=== PATIENT | female | born 1985 | race Caucasian/White ===

== ENCOUNTER 2022-04-21 17:55 | Emergency (ER) | payer BC, SELFPAY ==
[2022-04-21 17:57] VITALS: BP 152/123; PULSE 132; RESP 12; TEMP 37.2; O2SAT 98; BMI 25.0
--- NOTE | 2022-04-21 18:18 | CT_ITS ---
STUDY: CT ABDOMEN AND PELVIS WITH CONTRAST REASON FOR EXAM: Female, 37 years old. Abdominal pain RADIATION DOSAGE (If Supplied By Facility): CTDIvol = ( 7.47 ) mGy, DLP = ( 393.28 ) mGycm TECHNIQUE: Transaxial images were obtained from the dome of the diaphragm to the symphysis pubis with oral contrast. 100mL Isovue-300 was administered. Sagittal and coronal images were reconstructed. Individualized dose optimization techniques were used for this CT. COMPARISON: None. FINDINGS: There is right lower lung bronchiectasis and interstitial infiltrate. The visualized portions of the heart are within normal limits. There is hepatomegaly with diffuse hepatic enlargement. Normal gallbladder and extrahepatic biliary system. Normal spleen. Normal pancreas. Normal bilateral adrenal glands. Normal right kidney. Normal left kidney. Normal visualized stomach. Normal small intestine. Normal colon. The appendix is visualized and appears normal. Normal abdominal aorta. Normal inferior vena cava. Normal retroperitoneum. Normal urinary bladder. There is IUD in the uterus. There is 3.8 cm lobular right ovarian cyst. There is mild free fluid in the pelvis. Normal abdominal wall. Normal osseous structures. CT/Abdomen/Pelvis WITH Contrast IMPRESSION: Right ovarian cyst. Mild free fluid. Hepatomegaly. Right lower lung interstitial infiltrate and bronchiectasis. Electronically Signed: Mason Ramirez MD at 21:39 EDT Reading Location ID and State: [facility] / [place] , Service support ,
--- NOTE | 2022-04-21 18:20 | ED.VIS.GI ---
HPI HPI - GI History of Present Illness Chief Complaint: Abd Pain Detail of Chief Complaint: Abdominal pain Informant: patient Abdominal Pain/Flank Pain Current Severity: 02/22 Narrative Narrative: Patient presents to the emergency department complaint of abdominal pain that started initially 3 days ago. Patient states she ate some peanut butter that she thought maybe was bad as Jiff recalled some other product for Salmonella. Patient states that soon after she started having nausea and dry heaves and diarrhea. Now complaining of pain in the right side of the abdomen that is worse with moving her right leg and cough. Patient has history of primary ciliary dyskinesia and asthma as well as hypoagammaglobulinemia. Patient had a low-grade fever today up to 100.1. She denies cough or sore throat. She denies body aches. She said decreased appetite. Prior similar symptoms: No PFSH PFSH Medical History (Updated 04/21/22 @ 22:[address] Makenzie Sin, DO) Asthma GERD (gastroesophageal reflux disease) Primary ciliary dyskinesia Home Medications Levocetirizine Dihydrochloride 5 mg PO DAILY 08/10/14 [History Last Taken Unknown] acetaminophen [Tylenol] 650 mg PO Q4H PRN 08/10/14 [History Last Taken Unknown] albuterol sulfate 2.5 mg INHALATION Q6HWA.RT 08/10/14 [History Last Taken Unknown] esomeprazole magnesium [Nexium] 40 mg PO BID 08/10/14 [History Last Taken Unknown] guaifenesin [Mucinex] 600 mg PO BID 08/10/14 [History Last Taken Unknown] levothyroxine 25 mcg PO DAILY 08/10/14 [History Last Taken Unknown] ondansetron 4 mg PO Q8H PRN PRN 08/10/14 [History Last Taken Unknown] azithromycin 500 mg PO DAILY 04/21/22 [History Last Taken Unknown] budesonide 0.25 mg INHALATION BID 04/21/22 [History Last Taken Unknown] dornase hay [Pulmozyme] 2.5 mg INHALATION BID 04/21/22 [History Last Taken Unknown] immune globulin (human) (IgG) g IV 04/21/22 [History Last Taken Unknown] linaclotide [Linzess] 145 mcg PO DAILY 04/21/22 [History Last Taken Unknown] Allergy/AdvReac Type Severity Reaction Status Date / Time 0.225 % sodium chloride Allergy Other Verified 04/21/22 17:57 [From Samir] aztreonam lysine Allergy Other Verified 04/21/22 17:57 [From [place]] ciprofloxacin [From Cipro] Allergy Hives Verified 04/21/22 17:57 ciprofloxacin HCl Allergy Hives Verified 04/21/22 17:57 [From Cipro] levofloxacin [From Levaquin] Allergy Hives Verified 04/21/22 17:57 tobramycin [From Samir] Allergy Other Verified 04/21/22 17:57 Surgical History (Updated 04/21/22 @ 18:09 by Jill Pedro) S/P lobectomy of lung Social History Smoking Status: Never smoker ROS ROS ED Constitutional Constitutional ED: Reports systems reviewed and no addt'l complaints, except as documented; Denies body ache(s), change in weight or chills Eyes Eyes: Denies acute decrease in peripheral vision, change in vision, double vision or loss of vision ENT ENT ED: Reports none; Denies ear pain, lip swelling, loss taste/smell, neck pain, otalgia or sore throat Cardiovascular Cardiovascular: Reports none; Denies abdominal pain, chest pain with activity, leg edema, lightheadedness, palpitations, rapid heart rate or syncope Respiratory/Chest Respiratory/Chest: Reports none; Denies change in mental status, dry cough, dyspnea, hemoptysis, shortness of breath at rest or shortness of breath with exertion Gastrointestinal Gastrointestinal: Reports none, abdominal pain, diarrhea, nausea and vomiting; Denies change in stool character, hematemesis, hematochezia, melena or rectal bleeding Genitourinary Genitourinary ED: Reports none; Denies abdominal discomfort, anuria, dysuria, genital pain or polyuria Musculoskeletal Musculoskeletal: Reports none; Denies arthralgias, back pain, difficulty walking, extremity pain, muscle weakness or myalgias Integumentary Reports none; Denies abscess or rash Neurologic Neurologic: Reports none; Denies abnormal gait, confusion, focal weakness, frequent falls, headache(s), loss of vision, numbness, paresthesias, radicular pain, vertigo or weakness Psychiatric Psychiatric: Reports systems reviewed and no addt'l complaints, except as documented and none; Denies behavioral changes, confusion, difficulty concentrating, hallucinations, suicidal ideation, tactile hallucinations or visual hallucinations Endocrine Endocrinology: Denies none, cold intolerance, excessive sweating, fatigue or heat intolerance Hematologic/Lymphatic Hematologic/Lymphatic: Reports none; Denies anemia, easy bleeding or easy bruising Allergic/Immunologic Allergic/Immunologic ED: Denies as per HPI, none, lip swelling, mouth swelling, throat swelling, tongue swelling or hives EXAM Physical Exam Const Vital Signs: 04/21/22 17:57 04/21/22 20:00 04/21/22 20:05 Temperature 98.9 F 100.5 F H Temperature Source Temporal Oral Pulse Rate 132 H 108 H 111 H Respiratory Rate 12 24 H 18 Respiratory Effort Normal Short of Breath Respiratory Depth Shallow Respiratory Pattern Tachypnea Blood Pressure 152/123 H 134/74 H Blood Pressure Mean 132 94 Pulse Ox 98 100 98 Oxygen Delivery Method Room Air Room Air Room Air 04/21/22 21:24 Temperature Temperature Source Pulse Rate 115 H Respiratory Rate 18 Respiratory Effort Respiratory Depth Respiratory Pattern Blood Pressure 127/72 H Blood Pressure Mean 90 Pulse Ox 97 Oxygen Delivery Method Room Air Positive well nourished and well developed General Appearance ED: well developed and NAD HEENT Reports TM's clear and moist mucous membranes normocephalic and atraumatic; Negative for trauma or tenderness Tympanic Membrane ED: Yes TM's clear Eyes PERRL and EOMs intact bilaterally General Eye ED: Negative for pale conjunctiva or scleral icterus Neck no lymphadenopathy, supple and no JVD General: Negative for tenderness Chest Wall inspection of chest normal and palpation of chest normal Chest: Negative for tenderness Resp normal respiratory effort and clear to auscultation bilaterally Effort and Inspection: Negative for respiratory distress or pain with movement Auscultation: Negative for rhonchi, wheezes or diminished lung sounds Cardio regular rate, regular rhythm, S1 normal heart sound, S2 normal heart sound and no murmurs Peripheral Pulses: pulses 2+ throughout GI normal to inspection, nondistended, normoactive bowel sounds, soft to palpation, non-distended and no masses GI Narrative: Tenderness to the right lower quadrant with guarding. Patient also some mild tenderness of the right upper quadrant. There is no rebound, rigidity, or peritoneal signs. She has a positive heel strike. Palpation: soft and tender Back/Spine no CVA tenderness and no thoracic nor lumbar tenderness Extremity normal to inspection General Extremety ED: Negative for edema General Extremity: Negative for edema Neuro oriented x3, CN's II-XII intact bilaterally, no sensory deficits noted and gait normal Sensorium / Orientation: awake, alert, oriented to person, oriented to place and oriented to time Motor Exam: strength 5/5 throughout and strength abnormal Psych mental status grossly normal Skin no rashes or lesions noted and no wounds MDM MDM MDM Narrative Medical decision making narrative: IV line established on arrival. Patient was given Zofran for nausea. Lab work-up showed a normal WBC count and chemistries. Urinalysis was unremarkable. CT scan of the abdomen pelvis showed a normal appendix but did show a 3.5 cm right ovarian cyst. Patient also was noted to have a right lower lobe interstitial infiltrate on CT of the lung bases. Patient tells me that she has been coughing more than usual and is chronically colonized with Pseudomonas. 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 I ordered a sputum culture and blood cultures as well. I feel patient can be safely discharged to home. Patient will continue with ibuprofen and Tylenol for discomfort of her abdominal pain and will follow-up with PROFESSOR OF ART regarding her ovarian cyst as she has had frequent ovarian cyst in the past. I also suspect patient may have had a viral gastroenteritis. Patient was unable to give a stool sample here to send for enteric pathogens. Lab Data Attestation: I reviewed the patient's lab results. Labs: Laboratory Results - last 24 hr 04/21/22 04/21/22 04/21/22 18:25 18:40 18:40 WBC 6.5 RBC 5.04 Hgb 14.5 Hct 43.9 MCV 87.1 MCH 28.8 MCHC 33.0 RDW Std Deviation 39.7 RDW Coeff of Teagan 12.4 Plt Count 125 L MPV 10.7 Immature Gran % (Auto) 0.300 Neut % (Auto) 89.1 H Lymph % (Auto) 4.1 L [place] % (Auto) 6.1 Eos % (Auto) 0.2 Baso % (Auto) 0.2 Absolute Neuts (auto) 5.8 Absolute Lymphs (auto) 0.27 L Nucleated RBC % 0 Differential Comment SCANNED Sodium 137 Potassium 3.5 Chloride 109 H Carbon Dioxide 21.0 Anion Gap 7 BUN 9 Creatinine 0.66 Estim Creat Clear Calc 92.30 Est GFR (MDRD) Af Amer 128 Est GFR (MDRD) Non-Af 106 BUN/Creatinine Ratio 13.5 Glucose 99 Lactic Acid Calcium 8.7 Total Bilirubin 0.50 AST 14 L ALT 20 Alkaline Phosphatase 37 L Total Protein 7.9 Albumin 3.8 Globulin 4.1 Albumin/Globulin Ratio 0.9 Lipase 76 Serum , Qual Urine Color Yellow Urine Clarity Clear Urine pH 6.0 Ur Specific [place] 1.020 Urine Protein 30 H Urine Glucose (UA) Normal Urine Ketones 50 H Urine Occult Blood 50 H Urine Nitrite Negative Urine Bilirubin Negative Urine Urobilinogen Normal Ur Leukocyte Esterase Negative Urine RBC 5-10 SEEN Urine WBC 0-5 SEEN Ur Squamous Epith Cells 5-10 SEEN Urine Bacteria 1+ Urine Mucus 2+ 04/21/22 04/21/22 18:40 18:40 WBC RBC Hgb Hct MCV MCH MCHC RDW Std Deviation RDW Coeff of Teagan Plt Count MPV Immature Gran % (Auto) Neut % (Auto) Lymph % (Auto) [place] % (Auto) Eos % (Auto) Baso % (Auto) Absolute Neuts (auto) Absolute Lymphs (auto) Nucleated RBC % Differential Comment Sodium Potassium Chloride Carbon Dioxide Anion Gap BUN Creatinine Estim Creat Clear Calc Est GFR (MDRD) Af Amer Est GFR (MDRD) Non-Af BUN/Creatinine Ratio Glucose Lactic Acid 0.5 Calcium Total Bilirubin AST ALT Alkaline Phosphatase Total Protein Albumin Globulin Albumin/Globulin Ratio Lipase Serum , Qual NEGATIVE Urine Color Urine Clarity Urine pH Ur Specific [place] Urine Protein Urine Glucose (UA) Urine Ketones Urine Occult Blood Urine Nitrite Urine Bilirubin Urine Urobilinogen Ur Leukocyte Esterase Urine RBC Urine WBC Ur Squamous Epith Cells Urine Bacteria Urine Mucus Radiography Diagnostic Testing: Clinical Impression(s) from Imaging Studies Abdomen/Pelvis CT 04/21/22 18:18 IMPRESSION: Right ovarian cyst. Mild free fluid. Hepatomegaly. Right lower lung interstitial infiltrate and bronchiectasis. Electronically Signed: Mason Ramirez MD at 21:39 EDT Reading Location ID and State: [facility] / [place] , Service support , Discharge Plan Triage Chief Complaint: Abd Pain ED Provider: Makenzie Sin Dx/Rx/DC Orders Clinical Impression: Pneumonia, Abdominal pain, Ovarian cyst Instructions: ED Ovarian Cyst, ED Pneumonia (Adult) Prescriptions: No Action acetaminophen [Tylenol] 325 MG tablet 650 mg PO Q4H PRN (Reason: Pain) RF: 0 albuterol sulfate 2.5 MG/3 ML solution for nebulization 2.5 mg inhalation Q6HWA.RT RF: 0 levothyroxine 50 MCG tablet 25 mcg PO DAILY RF: 0 esomeprazole magnesium [Nexium] 40 MG capsule 40 mg PO BID RF: 0 ondansetron 4 MG tablet 4 mg PO Q8H PRN PRN (Reason: Nausea) RF: 0 guaifenesin [Mucinex] 600 MG tablet extended release 12hr 600 mg PO BID RF: 0 Levocetirizine Dihydrochloride 5 mg PO DAILY RF: 0 immune globulin (human) (IgG) 1 gram Recon Soln IV RF: 0 Pulmozyme 1 mg/mL Solution 2.5 mg INHALATION BID RF: 0 budesonide 0.25 mg/2 mL Suspension For Nebulization 0.25 mg INHALATION BID RF: 0 azithromycin 500 mg Tablet 500 mg PO DAILY RF: 0 Linzess 145 mcg Capsule 145 mcg PO DAILY RF: 0 Primary Care Provider: Jimmy Farnsworth Referrals: Jimmy Farnsworth MD [Primary Care Provider] - Activity Restrictions/Additional Instructions: .Follow-up with your experimental welder regarding ongoing outpatient IV antibiotics Disposition Disposition: Home, Self Care
[2022-04-21 18:32] LABS: Color, Urine Yellow (Yellow); Glucose, Dipstick Normal (Normal); Ketone-Dipstick 50 mg/dl (Negative); Leukocyte Esterase-Dipstick Negative /ul (Negative); Nitrite-Dipstick Negative (Negative); Occult Blood-Urine 50 /ul (Negative); Protein-Dipstick 30 mg/dl (Negative); Urine Bilirubin Dipstick Negative (Negative); Urine Clarity Clear (Clear); Urine Urobilinogen Normal (Normal)
[2022-04-21 18:43] LABS: Bacteria 1+ /hpf (None Seen); Red Blood Cells-Urine 5-10 SEEN /hpf (0-5); Squamous Epithelial Cells - UA 5-10 SEEN /hpf (5-10); White Blood Cells 0-5 SEEN /hpf (0-5)
[2022-04-21 18:44] LABS: Mucous, Urine 2+ /hpf (<or=2+)
[2022-04-21] MEDS: 0.9% Normal Saline 1,000 ML 125 ML IV (18:44)
[2022-04-21] MEDS: Ondansetron 4 MG/2 ML Vial IV ×2 (18:44→21:24)
[2022-04-21 18:56] LABS: Absolute Lymphocyte Count 0.27 X10^3/uL (0.83-4.51); Absolute Neutrophil Count 5.8 X10^3/uL (2.0-7.7); Basophil# 0.01 X10^3/uL; Basophil% 0.2 % (0-1); Eosinophil# 0.01 X10^3/uL; Eosinophils% 0.2 % (0-5); Hematocrit 43.9 % (37-47); Hemoglobin 14.5 g/dL (12.0-15.0); Lymphocyte # 0.27 X10^3/ul (0.83-4.51); Lymphocyte % 4.1 % (19-41); Mean Corpuscular Hgb 28.8 pg (27.0-32.0); Mean Corpuscular Volume 87.1 fL (81-99); Mean Platelet Vol. 10.7 fl (6.2-12.0); Monocyte% 6.1 % (0-10); NRBC Flagged by Analyzer 0 % (0-5); Neutrophil # 5.82 X10^3/uL (2.7-7.7); Neutrophil % 89.1 % (47-70); POSITIVE DIFFERENTIAL YES; Platelet Count 125 K/mm3 (150-450); RBC Distribution Width CV 12.4 % (11.6-14.6); RBC Distribution Width SD 39.7 fl (35.1-43.9); Red Blood Count 5.04 M/mm3 (4.2-5.4); White Blood Count 6.5 K/mm3 (4.4-11.0)
[2022-04-21 18:57] LABS: Differential Indicated SCAN CRITERIA MET
[2022-04-21 19:10] LABS: ALB/GLOB Ratio 0.9 RATIO (0.9-2.4); AST(SGOT) 14 U/L (15-37); Alanine Aminotransfer ALT/SGPT 20 U/L (13-56); Albumin, Serum 3.8 g/dL (3.2-5.0); Alkaline Phosphatase 37 U/L (45-117); Anion Gap 7 (5-15); BUN 9 mg/dL (7-18); BUN/Creat Ratio 13.5 RATIO (10-20); Calcium,Total 8.7 mg/dL (8.5-10.1); Chloride 109 mmol/L (98-107); Creatinine, Serum 0.66 mg/dL (0.55-1.02); EST Glomerular Filtration Rate 106 mL/min (>60); Est Glom Filt Rate - Afr Amer 128 mL/min (>60); Globulin 4.1 g/dL (2.2-4.2); Glucose 99 mg/dL (74-106); Lipase 76 U/L (73-393); Potassium 3.5 mmol/L (3.5-5.1); Protein, Total 7.9 g/dL (6.4-8.2); Sodium Level 137 mmol/L (136-145)
[2022-04-21 19:25] LABS: Internal QC Validated? YES +Cl - CLEAR BKGD; Pregnancy, Serum, hCG Quali. NEGATIVE Negative
[2022-04-21 19:41] LABS: Lactic Acid 0.5 mmol/L (0.4-1.9)
[2022-04-21 20:00] VITALS: PULSE 108; RESP 20; RESP 24; O2SAT 100
[2022-04-21] MEDS: Albuterol 2.5 MG/3 ML VIAL.NEB. INHALATION (20:00)
[2022-04-21 20:05] VITALS: BP 134/74; PULSE 111; RESP 18; TEMP 38.1; O2SAT 98
[2022-04-21 20:19] LABS: Differential Comment SCANNED
[2022-04-21 21:24] VITALS: BP 127/72; PULSE 115; RESP 18; O2SAT 97
[2022-04-21] MEDS: Ketorolac 30 MG/ML Syringe IV (22:02)
--- NOTE | 2022-04-21 22:15 | ED.RN ---
Patient given sputum cup and told to press call light once she has completed
[2022-04-21 23:44] VITALS: BP 111/71; PULSE 102; RESP 12; TEMP 37.1; O2SAT 98
--- NOTE | 2022-04-22 00:19 | ED.RN ---
flushd port with NS and heparin. DC. Tolerated well. Covered site with sterile gauze and tape.
== END 2022-04-22 00:21 | disposition home or self-care (01) ==
PROVIDERS: Emergency Provider Emergency Medicine; PCP Family Medicine; Visit Provider Emergency Medicine
DX: J18.9 Pneumonia, unspecified organism (principal); B96.5 Pseudomonas (aeruginosa) (mallei) (pseudomallei) as the cause of diseases classified elsewhere; N83.201 Unspecified ovarian cyst, right side; R10.9 Unspecified abdominal pain; K21.9 Gastro-esophageal reflux disease without esophagitis
CPT/HCPCS: 36591; 74177; 80053; 81001; 83605; 83690; 84703; 85025; 87811; 94640; 96361; 96365; 96367; 96375; 99251; 99281; 99282; J2185; J7030; Q9967; A4216; G0463; J2405; J3490

== ENCOUNTER 2024-04-11 18:10 | Emergency (ER) | payer MEDICARE, OTHER, SELFPAY ==
[2024-04-11 18:11] VITALS: BP 163/93; PULSE 89; RESP 18; TEMP 36.4; O2SAT 98; BMI 255.1
--- NOTE | 2024-04-11 18:18 | CT_ITS ---
INDICATION: TRAUMA EXAMINATION: CT FACIAL BONES - CT Maxillofacial W/O Contrast Injection TECHNIQUE: Helically acquired images were obtained of the facial bones. A radiation dose optimization technique was used for this scan. IV Contrast dosage and agent: None. COMPARISON: CT head on same day. FINDINGS: SOFT TISSUES: No focal subcutaneous swelling. No discrete fluid collections. VISUALIZED PARANASAL SINUSES: Minimal scattered paranasal sinus mucoperiosteal thickening. Midline osseous nasal septum. Left betty bullosa.. VISUALIZED MASTOID AIR CELLS: Clear. FACIAL BONES, MANDIBLE AND TMJs: No displaced facial bone fracture. No lytic or blastic abnormality. VISUALIZED DENTITION: Left mandibular first molar small alveolar root odontogenic abscess without overlying soft tissue inflammation. ORBITAL CONTENTS: Both globes, extraocular muscles and retrobulbar fat appear unremarkable. CT/Sinus/Facial Bone IMPRESSION: No CT evidence of acute osseous injury. Left mandibular first molar small alveolar root odontogenic abscess without overlying soft tissue inflammation. Electronically Signed: Wayne Medina MD at 19:15 EDT ,
--- NOTE | 2024-04-11 18:18 | CT_ITS ---
INDICATION: TRAUMA EXAMINATION: CT BRAIN - CT Head or Brain W/O Contrast Injection TECHNIQUE: Multiple axial images were obtained of the head without intravenous contrast. A radiation dose optimization technique was used for this scan. IV Contrast dosage and agent: None. COMPARISON: None FINDINGS: BRAIN PARENCHYMA: No intra- or extra-axial hemorrhage. No evidence of acute infarct. No intracranial mass or mass effect. Unremarkable white matter for age. There is preservation of the vasquez/white matter interface. Posterior fossa structures are unremarkable. CSF SPACES: Cerebral volume appropriate for age. No hydrocephalus. Basal cisterns are patent. CALVARIUM, SKULL BASE, PARANASAL SINUSES AND MASTOID AIR CELLS: No acute osseous finding. Paransasal sinuses are clear. Mastoid air cells are clear. ORBITS: Both globes, extraocular muscles, optic nerves and retrobulbar fat appear unremarkable. ASPECTS Score for Acute Strokes: 10 CT/Brain/Head without Contrast IMPRESSION: Negative Brain CT without contrast. Electronically Signed: Wayne Medina MD at 18:59 EDT ,
[2024-04-11 19:11] VITALS: BP 151/93; PULSE 81; RESP 16; O2SAT 96
--- NOTE | 2024-04-11 19:29 | EDS_ITS ---
HPI History of Present Illness Chief Complaint: Head Injury Informant: patient Onset/Context/Timing Onset: Today Mechanism/Context: Blunt Injury Quality of Pain: Sharp Location: Right side of head Worsened by: Palpation and coughing Relieved by: Nothing Associated Symptoms Associated Symptoms: Negative for Parasthesias, Weakness, Loss of function, Inability to ambulate, Loss of consciousness or Amnesia Narrative Narrative: Patient presents with a head injury that occurred today. Patient states that a projector screen fell from the ceiling and swung around and hit her in her head. Patient denies any loss of consciousness. Patient denies any paresthesias or weakness. Patient states the pain is mainly over the right temporal area. Patient states that it is worse with palpation. Patient states it is also worse with coughing. Patient states nothing seems to help with it. Patient states the pain radiates into the right side of her face. Patient is currently on antibiotics through a med port. Patient also flushes her med port with heparin. Patient does not take any other blood thinners. [facility] Medical History (Updated 04/11/24 @ 20:[address] James Nobles, DO) Cystic fibrosis GERD (gastroesophageal reflux disease) Asthma Primary ciliary dyskinesia Home Medications ?Medication ?Instructions ?Recorded ?Last Taken ?Type acetaminophen 325 mg tablet 650 mg PO Q4H PRN Pain 08/10/14 Unknown History (Tylenol) albuterol sulfate 2.5 mg/3 mL 2.5 mg inhalation Q6HWA.RT 08/10/14 Unknown History (0.083 %) solution for nebulization esomeprazole magnesium 40 mg 40 mg PO BID 08/10/14 Unknown History capsule,delayed release (Nexium) guaifenesin 600 mg tablet, 600 mg PO BID 08/10/14 Unknown History extended release 12 hr (Mucinex) levothyroxine 50 mcg tablet 25 mcg PO DAILY 08/10/14 Unknown History ondansetron 4 mg disintegrating 4 mg PO Q8H PRN PRN Nausea 08/10/14 Unknown History tablet azithromycin 500 mg tablet 500 mg PO DAILY 04/21/22 Unknown History budesonide 0.25 mg/2 mL suspension 0.25 mg inhalation BID 04/21/22 Unknown History for nebulization dornase hay 1 mg/mL solution for 2.5 mg inhalation BID 04/21/22 Unknown History inhalation (Pulmozyme) immune globulin (human) (IgG) 1 g IV 04/21/22 Unknown History gram intravenous solution linaclotide 145 mcg capsule 145 mcg PO DAILY 04/21/22 Unknown History (Linzess) Allergy/AdvReac Type Severity Reaction Status Date / Time 0.225 % sodium chloride Allergy Other Verified 04/21/22 17:57 (From Samir) aztreonam lysine (From Allergy Other Verified 04/21/22 17:57 [place]) ciprofloxacin (From Cipro) Allergy Hives Verified 04/21/22 17:57 ciprofloxacin HCl (From Allergy Hives Verified 04/21/22 17:57 Cipro) levofloxacin (From Levaquin) Allergy Hives Verified 04/21/22 17:57 tobramycin (From Samir) Allergy Other Verified 04/21/22 17:57 Surgical History History of cardiac radiofrequency ablation (RFA) S/P lobectomy of lung Social History Smoking Status: Never smoker ROS ROS ED Constitutional Constitutional ED: Denies chills or fever(s) Eyes Eyes: Denies blurry vision or change in vision ENT ENT ED: Denies rhinorrhea or sore throat Cardiovascular Cardiovascular: Denies chest pain or palpitations Respiratory/Chest Respiratory/Chest: Denies cough or dyspnea Gastrointestinal Gastrointestinal: Reports nausea; Denies vomiting Genitourinary Genitourinary ED: Denies dysuria or hematuria Musculoskeletal Musculoskeletal: Denies back pain or neck pain Integumentary Denies abscess or rash Neurologic Neurologic: Reports headache(s); Denies weakness Allergic/Immunologic Allergic/Immunologic ED: Denies mouth swelling or urticaria EXAM Physical Exam Const Vital Signs: 04/11/24 18:11 04/11/24 19:11 Temperature 97.6 F L Temperature Source Temporal Pulse Rate 89 81 Respiratory Rate 18 16 Blood Pressure 163/93 H 151/93 H Blood Pressure Mean 116 112 Pulse Ox 98 96 Oxygen Delivery Method Room Air Positive well nourished and well developed General Appearance ED: well developed and NAD HEENT HEENT Narrative: There is tenderness over the right temporal area and right TMJ area. There is no bony crepitance or step-off. There is no edema or ecchymosis. tenderness Resp normal respiratory effort Auscultation: wheezes scattered wheezes and throughout Cardio regular rhythm Rate: regular rate Extremity full ROM Neuro oriented x3, CN's II-XII intact bilaterally, moves all extremities, no focal motor deficits and no sensory deficits noted [place] Coma Scale: document GCS findings Spontaneous Obeys Commands Oriented 15 Sensorium / Orientation: alert Motor Exam: strength 5/5 throughout Psych mental status grossly normal and thought process normal MDM MDM MDM Narrative Medical decision making narrative: Differential diagnosis includes intracranial bleeding, closed head injury, facial fracture, and contusion. CT scan of the brain will be obtained to assess for intracranial bleeding. CT scan of the facial bones will be obtained to assess for facial fracture. Radiography Diagnostic Testing: Clinical Impression(s) from Imaging Studies Brain CT 04/11/24 18:18 IMPRESSION: Negative Brain CT without contrast. Electronically Signed: Wayne Medina MD at 18:59 EDT Reading Location ID and State: [facility] / [place] Tel , Service support , Facial/Sinus 04/11/24 18:18 IMPRESSION: No CT evidence of acute osseous injury. Left mandibular first molar small alveolar root odontogenic abscess without overlying soft tissue inflammation. Electronically Signed: Wayne Medina MD at 19:15 EDT , CT scan of the brain was obtained. There is no acute intracranial abnormality. This was interpreted by the radiologist and was also independently reviewed by myself. CT scan of the facial bones was obtained. There is no acute fracture noted. There is a small left mandibular first molar dental abscess without any overlying soft tissue inflammation. This was interpreted by the radiologist and was also independently reviewed by myself. Treatment and Re-Evaluation Narrative: Patient was advised of her findings. Since the patient is currently on Zosyn, I do not feel she needs any more antibiotics for her dental abscess. Patient states she will follow-up with her dentist on this. Patient was instructed to follow-up with her primary care physician in 5 to 7 days. Patient was instructed to return if worse in any way. Patient was given head injury instructions. Patient and understood and were agreeable with the plan. All questions were answered. Discharge Plan Triage Chief Complaint: Head Injury ED Provider: James Nobles Dx/Rx/DC Orders Clinical Impression: Closed head injury, Dental abscess, Cystic fibrosis Instructions: ED Head Injury (Adult) Prescriptions: No Action acetaminophen [Tylenol] 325 MG tablet 650 mg PO Q4H PRN (Reason: Pain) albuterol sulfate 2.5 MG/3 ML solution for nebulization 2.5 mg inhalation Q6HWA.RT levothyroxine 50 MCG tablet 25 mcg PO DAILY esomeprazole magnesium [Nexium] 40 MG capsule 40 mg PO BID ondansetron 4 MG tablet 4 mg PO Q8H PRN PRN (Reason: Nausea) guaifenesin [Mucinex] 600 MG tablet extended release 12hr 600 mg PO BID Levocetirizine Dihydrochloride 5 mg PO DAILY immune globulin (human) (IgG) 1 gram Recon Soln IV Pulmozyme 1 mg/mL Solution 2.5 mg INHALATION BID budesonide 0.25 mg/2 mL Suspension For Nebulization 0.25 mg INHALATION BID azithromycin 500 mg Tablet 500 mg PO DAILY Linzess 145 mcg Capsule 145 mcg PO DAILY Primary Care Provider: Jimmy Farnsworth Referrals: Jimmy Farnsworth MD [Primary Care Provider] - 5-7 Days DentistSandra [STAFF PHYSICIAN] - 5-7 Days Print Language: Pashto Disposition Disposition: Home, Self Care
[2024-04-11 19:43] VITALS: BP 169/87; PULSE 100; RESP 16; TEMP 36.8; O2SAT 96
== END 2024-04-11 20:11 | disposition home or self-care (01) ==
PROVIDERS: Emergency Provider Emergency Medicine; PCP Family Medicine; Visit Provider Emergency Medicine
DX: S09.90XA Unspecified injury of head, initial encounter (principal); E84.9 Cystic fibrosis, unspecified; K04.7 Periapical abscess without sinus; W22.8XXA Striking against or struck by other objects, initial encounter; K21.9 Gastro-esophageal reflux disease without esophagitis; J45.909 Unspecified asthma, uncomplicated; Z79.899 Other long term (current) drug therapy
CPT/HCPCS: 70450; 70486; 99282

== ENCOUNTER 2024-07-27 16:11 | Emergency (ER) | payer MEDICARE, OTHER, SELFPAY ==
[2024-07-27 16:12] VITALS: BP 171/84; PULSE 115; RESP 18; TEMP 37; O2SAT 98; BMI 24.7
--- NOTE | 2024-07-27 16:33 | EX.ED.DYSGE1 ---
HPI History of Present Illness Chief Complaint: Head Injury Informant: patient Narrative Narrative: 39-year-old female history of cystic fibrosis/immunosuppression sustained a head laceration when she closed a gate of her vehicle. History of cystic fibrosis/immunosuppression sustained a head laceration when she closed the gate of her vehicle. Tetanus last updated 2014 [facility] Medical History Cystic fibrosis GERD (gastroesophageal reflux disease) Asthma Primary ciliary dyskinesia Home Medications ?Medication ?Instructions ?Recorded ?Last Taken ?Type acetaminophen 325 mg tablet 650 mg PO Q4H PRN Pain 08/10/14 Unknown History (Tylenol) albuterol sulfate 2.5 mg/3 mL 2.5 mg inhalation Q6HWA.RT 08/10/14 Unknown History (0.083 %) solution for nebulization esomeprazole magnesium 40 mg 40 mg PO BID 08/10/14 Unknown History capsule,delayed release (Nexium) guaifenesin 600 mg tablet, 600 mg PO BID 08/10/14 Unknown History extended release 12 hr (Mucinex) levothyroxine 50 mcg tablet 25 mcg PO DAILY 08/10/14 Unknown History ondansetron 4 mg disintegrating 4 mg PO Q8H PRN PRN Nausea 08/10/14 Unknown History tablet azithromycin 500 mg tablet 500 mg PO DAILY 04/21/22 Unknown History budesonide 0.25 mg/2 mL suspension 0.25 mg inhalation BID 04/21/22 Unknown History for nebulization dornase hay 1 mg/mL solution for 2.5 mg inhalation BID 04/21/22 Unknown History inhalation (Pulmozyme) immune globulin (human) (IgG) 1 g IV 04/21/22 Unknown History gram intravenous solution linaclotide 145 mcg capsule 145 mcg PO DAILY 04/21/22 Unknown History (Linzess) Allergy/AdvReac Type Severity Reaction Status Date / Time 0.225 % sodium chloride Allergy Other Verified 07/27/24 16:16 (From Samir) aztreonam lysine (From Allergy Other Verified 07/27/24 16:16 [place]) ciprofloxacin (From Cipro) Allergy Hives Verified 07/27/24 16:16 ciprofloxacin HCl (From Allergy Hives Verified 07/27/24 16:16 Cipro) levofloxacin (From Levaquin) Allergy Hives Verified 07/27/24 16:16 tobramycin (From Samir) Allergy Other Verified 07/27/24 16:16 Surgical History History of cardiac radiofrequency ablation (RFA) S/P lobectomy of lung Social History Smoking Status: Never smoker ROS ROS ED Constitutional Constitutional ED: Denies chills or weight loss Eyes Eyes: Denies change in vision or diplopia ENT ENT ED: Denies ear pain, rhinorrhea or sore throat Cardiovascular Cardiovascular: Denies chest pain, orthopnea, palpitations or racing heartbeat Respiratory/Chest Respiratory/Chest: Denies cough, dyspnea or orthopnea Gastrointestinal Gastrointestinal: Denies abdominal pain, diarrhea, nausea or vomiting Genitourinary Genitourinary ED: Denies dysuria, hematuria or urinary frequency Musculoskeletal Musculoskeletal: Denies arthralgias or myalgias Integumentary Reports other Details: Scalp laceration ; Denies abscess or rash Neurologic Neurologic: Reports headache(s); Denies weakness Psychiatric Psychiatric: Denies anxiety, depression, suicidal ideation or suicidal thoughts Endocrine Endocrinology: Denies polydipsia, polyphagia or polyuria Allergic/Immunologic Allergic/Immunologic ED: Denies mouth swelling, tongue swelling or urticaria EXAM Physical Exam Const Vital Signs: 07/27/24 16:12 07/27/24 16:47 Temperature 98.6 F Temperature Source Temporal Pulse Rate 115 H Respiratory Rate 18 Respiratory Effort Normal Respiratory Depth Normal Respiratory Pattern Normal Blood Pressure 171/84 H Blood Pressure Mean 113 Pulse Ox 98 Oxygen Delivery Method Room Air Room Air Positive well nourished and well developed General Appearance ED: well developed HEENT Reports normocephalic and moist mucous membranes HEENT Narrative: There is a 2.5 cm linear laceration of the scalp in the midline. Wound edges are well-approximated. It is linear in fashion. There is no palpable bony depression. Minimal bleeding at this time. Eyes PERRL and EOMs intact bilaterally Neck no lymphadenopathy, supple and no JVD Resp normal respiratory effort and clear to auscultation bilaterally Cardio regular rate, regular rhythm and no murmurs GI normal to inspection, nondistended, normoactive bowel sounds and non-tender Palpation: soft Back/Spine no CVA tenderness and normal ROM Extremity normal to inspection General Extremety ED: Negative for edema General Extremity: Negative for edema Neuro oriented x3 and CN's II-XII intact bilaterally Sensorium / Orientation: alert Motor Exam: strength 5/5 throughout Psych mental status grossly normal Mood & Affect: Negative for depressed or tearful Skin no rashes or lesions noted and no wounds MDM MDM MDM Narrative Medical decision making narrative: Differential diagnosis includes laceration neurovascular injury skull fracture concussion intracranial 9 Wound was locally anesthetized using 1% washed with Shur-Clens irrigated with sterile saline and explored. Wound was closed using a total of 4 simple erupted 5-0 Vicryl sutures. Wound care discussed with the patient. I am not seeing physical evidence of fracture. GCS is 15 and normal neurologic exam. I do not believe that a CT is indicated at this time. Wound care discussed with patient to monitor for any signs of infection worsening or concerns and return if needed. History & Record Review Discussion w/independent historian: Patient Discharge Plan Triage Chief Complaint: Head Injury ED Provider: Laureano Slater Dx/Rx/DC Orders Clinical Impression: Laceration of scalp, Headache Instructions: ED Head Injury (Adult), ED Laceration, All Closures Prescriptions: No Action acetaminophen [Tylenol] 325 MG tablet 650 mg PO Q4H PRN (Reason: Pain) albuterol sulfate 2.5 MG/3 ML solution for nebulization 2.5 mg inhalation Q6HWA.RT levothyroxine 50 MCG tablet 25 mcg PO DAILY esomeprazole magnesium [Nexium] 40 MG capsule 40 mg PO BID ondansetron 4 MG tablet 4 mg PO Q8H PRN PRN (Reason: Nausea) guaifenesin [Mucinex] 600 MG tablet extended release 12hr 600 mg PO BID immune globulin (human) (IgG) 1 gram Recon Soln IV Pulmozyme 1 mg/mL Solution 2.5 mg INHALATION BID budesonide 0.25 mg/2 mL Suspension For Nebulization 0.25 mg INHALATION BID azithromycin 500 mg Tablet 500 mg PO DAILY Linzess 145 mcg Capsule 145 mcg PO DAILY Primary Care Provider: Jimmy Farnsworth Referrals: Jimmy Farnsworth MD [Primary Care Provider] - As Needed Print Language: Senegalese Disposition Disposition: Home, Self Care
[2024-07-27] MEDS: Diphth,Pertuss(Acell),Tet Vac 0.5 ML Vial IM (16:40)
[2024-07-27] MEDS: Lidocaine 1% (20 ml mdv) 20 ML Vial INFILT (16:46)
[2024-07-27 17:06] VITALS: BP 134/71; PULSE 99; RESP 18; TEMP 36.4; O2SAT 99
== END 2024-07-27 17:10 | disposition home or self-care (01) ==
LOC: ED 17:09
PROVIDERS: Emergency Provider Emergency Medicine; PCP Family Medicine; Visit Provider Emergency Medicine
DX: S01.01XA Laceration without foreign body of scalp, initial encounter (principal); R51.9 Headache, unspecified; W22.8XXA Striking against or struck by other objects, initial encounter; K21.9 Gastro-esophageal reflux disease without esophagitis; Z79.899 Other long term (current) drug therapy; J45.909 Unspecified asthma, uncomplicated; Z79.51 Long term (current) use of inhaled steroids
CPT/HCPCS: 12001; 90471; 90715; 99283

== ENCOUNTER 2024-11-09 01:51 | Emergency (ER) | payer MEDICARE, OTHER, SELFPAY ==
[2024-11-09 01:52] VITALS: BP 140/98; PULSE 114; RESP 24; TEMP 36.7; O2SAT 100; BMI 24.7
[2024-11-09] MEDS: 0.9% Normal Saline (1000mL) 1,000 ML 999 ML IV ×2 (02:47→06:42)
[2024-11-09] MEDS: Morphine 4 MG/ML Syringe IV (02:47)
[2024-11-09] MEDS: proCHLORPERazine 10 MG/2 ML Vial IV (02:47)
[2024-11-09] MEDS: Diphenoxylate/Atrop 1 Tablet 2 TABLET PO (02:47)
[2024-11-09 02:51] LABS: Absolute Lymphocyte Count 0.49 X10^3/uL (0.83-4.51); Absolute Neutrophil Count 16.2 X10^3/uL (2.0-7.7); Basophil# 0.04 X10^3/uL; Basophil% 0.2 % (0-1); Eosinophil# 0.04 X10^3/uL; Eosinophils% 0.2 % (0-5); Hematocrit 42.2 % (37-47); Hemoglobin 14.3 g/dL (12.0-15.0); Lymphocyte # 0.49 X10^3/ul (0.83-4.51); Lymphocyte % 2.8 % (19-41); Mean Corp Hgb Conc 33.9 g/dL (32-36); Mean Corpuscular Hgb 29.1 pg (27.0-32.0); Mean Corpuscular Volume 85.9 fL (81-99); Mean Platelet Vol. 10.7 fl (6.2-12.0); Monocyte# 0.87 X10^3/uL; Monocyte% 4.9 % (0-10); NRBC Flagged by Analyzer 0 % (0-5); Neutrophil # 16.17 X10^3/uL (2.7-7.7); Neutrophil % 91.5 % (47-70); POSITIVE DIFFERENTIAL YES; Platelet Count 177 K/mm3 (150-450); RBC Distribution Width CV 12.7 % (11.6-14.6); RBC Distribution Width SD 39.7 fl (35.1-43.9); Red Blood Count 4.91 M/mm3 (4.2-5.4); White Blood Count 17.7 K/mm3 (4.4-11.0)
[2024-11-09 03:08] LABS: AST(SGOT) 14 U/L (15-37); Alanine Aminotransfer ALT/SGPT 24 U/L (13-56); Albumin, Serum 3.9 g/dL (3.2-5.0); Alkaline Phosphatase 33 U/L (45-117); Anion Gap 8 (5-15); BUN 13 mg/dL (7-18); BUN/Creat Ratio 20.9 RATIO (10-20); Bilirubin, Direct 0.21 mg/dL (0.00-0.30); Calcium,Total 8.9 mg/dL (8.5-10.1); Chloride 109 mmol/L (98-107); Creatinine, Serum 0.62 mg/dL (0.55-1.02); EST Glomerular Filtration Rate 113 mL/min (>60); Est Glom Filt Rate - Afr Amer 137 mL/min (>60); Estimated Creatinine Clearance 105.13 ml/min; Globulin 3.9 g/dL (2.2-4.2); Glucose 145 mg/dL (74-106); Lipase 27 U/L (13-75); Magnesium 1.7 mg/dL (1.6-2.6); Potassium 3.2 mmol/L (3.5-5.1); Protein, Total 7.8 g/dL (6.4-8.2); Sodium Level 137 mmol/L (136-145)
--- NOTE | 2024-11-09 03:33 | CT_ITS ---
EXAM: CT Abdomen And Pelvis W/ Contrast Injection HISTORY: abd pain TECHNIQUE: Routine protocol CT abdomen pelvis. IV Contrast: IV 75mL Isovue-370 . Oral Contrast: without. Sagittal and coronal images were reconstructed. RADIATION DOSAGE (If Supplied By Facility): CTDIvol = ( 6.39 ) mGy, DLP = ( 296.97 ) mGycm Individualized dose optimization techniques were used for this CT. COMPARISON: CT abdomen pelvis 04/21/2022. LIMITATIONS: None. FINDINGS: LOWER CHEST: Extensive reticulonodular infiltrate throughout the right lower lobe is similar but increased compared to the prior, with associated bronchiectasis. Soft tissue fullness of the GE junction likely a small hiatal hernia.. LIVER: Tiny low-attenuation structures in the right lobe too small to characterize.. GALLBLADDER/BILE DUCTS: Unremarkable. PANCREAS: Unremarkable. SPLEEN: Unremarkable. ADRENAL GLANDS: Unremarkable. KIDNEYS / URETERS: Unremarkable. BOWEL / MESENTERY: Suggestion of wall thickening distal gastric antrum possibly exaggerated by suboptimal distention. Fluid distended nondilated small bowel in the mid to lower abdomen. Colonic wall thickening ascending through transverse colon.. No bowel obstruction. APPENDIX: Identified and normal. No evidence of acute appendicitis. PERITONEUM: No free air. No free fluid. VESSELS: Abdominal aorta is normal caliber. RETROPERITONEUM: Unremarkable. REPRODUCTIVE ORGANS: Unremarkable. Intrauterine device in place within the uterus. BLADDER: Unremarkable. ABDOMINAL WALL: Unremarkable. BONES: No acute abnormality. OTHER: None. CT/Abdomen/Pelvis W IV Cont ONLY IMPRESSION: 1. Colonic wall thickening mainly the ascending through transverse colon consistent with acute colitis. Fluid distended small bowel suggests enteritis component. 2. Wall thickening distal gastric antrum acute gastritis versus nondistention. 3. Diffuse nodular interstitial infiltrate right lower lobe with bronchiectasis increased compared to the prior. Presumed progression chronic changes but cannot exclude superimposed acute inflammatory component. Electronically Signed: Josselin Gordon MD at 5:50 EST ,
[2024-11-09 04:00] VITALS: BP 128/80; PULSE 116; RESP 18; O2SAT 100
[2024-11-09] MEDS: Metoclopramide 10 MG/2 ML Vial IV (04:34)
[2024-11-09 06:00] VITALS: BP 121/85; PULSE 106; RESP 18; O2SAT 97
--- NOTE | 2024-11-09 06:23 | EX.ED.DYSGE1 ---
HPI History of Present Illness Chief Complaint: Nausea/Vomiting/Diarrhea Informant: patient and spouse/S.O. Narrative Narrative: Patient is a 39-year-old female with past medical history of cystic fibrosis and GERD. She states that this evening she began with generalized abdominal pain and bouts of nausea vomiting and diarrhea. She denies any known sick contacts. She denies any recent travel outside the country or livestock exposure. She does reports she recently finished a round of IV antibiotics and is currently on Augmentin. She reports she has not been able to hold any food or fluid down and secondary to the persistent nature of her symptoms comes in for evaluation [facility] Medical History Cystic fibrosis GERD (gastroesophageal reflux disease) Asthma Primary ciliary dyskinesia Home Medications ?Medication ?Instructions ?Recorded ?Last Taken ?Type acetaminophen 325 mg tablet 650 mg PO Q4H PRN Pain 08/10/14 Unknown History (Tylenol) albuterol sulfate 2.5 mg/3 mL 2.5 mg inhalation Q6HWA.RT 08/10/14 Unknown History (0.083 %) solution for nebulization esomeprazole magnesium 40 mg 40 mg PO BID 08/10/14 Unknown History capsule,delayed release (Nexium) guaifenesin 600 mg tablet, 600 mg PO BID 08/10/14 Unknown History extended release 12 hr (Mucinex) levothyroxine 50 mcg tablet 25 mcg PO DAILY 08/10/14 Unknown History ondansetron 4 mg disintegrating 4 mg PO Q8H PRN PRN Nausea 08/10/14 Unknown History tablet azithromycin 500 mg tablet 500 mg PO DAILY 04/21/22 Unknown History budesonide 0.25 mg/2 mL suspension 0.25 mg inhalation BID 04/21/22 Unknown History for nebulization dornase hay 1 mg/mL solution for 2.5 mg inhalation BID 04/21/22 Unknown History inhalation (Pulmozyme) immune globulin (human) (IgG) 1 g IV 04/21/22 Unknown History gram intravenous solution linaclotide 145 mcg capsule 145 mcg PO DAILY 04/21/22 Unknown History (Linzess) amoxicillin 875 mg-potassium 1 tab PO BID 11/09/24 Unknown History clavulanate 125 mg tablet diphenoxylate-atropine 2.5 1 tab PO 4X/DAY PRN diarrhea 5 11/09/24 Unknown Rx mg-0.025 mg tablet (Lomotil) days #20 tabs ondansetron HCl 4 mg tablet 4 mg PO TID PRN nausea and 11/09/24 Unknown Rx vomiting #21 tabs promethazine 25 mg tablet 25 mg PO TID PRN nausea and 11/09/24 Unknown Rx vomiting #21 tabs Allergy/AdvReac Type Severity Reaction Status Date / Time 0.225 % sodium chloride Allergy Other Verified 11/09/24 01:55 (From Samir) aztreonam lysine (From Allergy Other Verified 11/09/24 01:55 [place]) ciprofloxacin (From Cipro) Allergy Hives Verified 11/09/24 01:55 ciprofloxacin HCl (From Allergy Hives Verified 11/09/24 01:55 Cipro) levofloxacin (From Levaquin) Allergy Hives Verified 11/09/24 01:55 polymyxin B Allergy Angioedema Verified 11/09/24 01:56 tobramycin (From Samir) Allergy Other Verified 11/09/24 01:55 Surgical History History of cardiac radiofrequency ablation (RFA) S/P lobectomy of lung Social History Smoking Status: Never smoker ROS ROS ED Constitutional Constitutional ED: Denies chills or fever(s) Eyes Eyes: Denies blurry vision or change in vision ENT ENT ED: Denies sore throat Cardiovascular Cardiovascular: Denies chest pain Respiratory/Chest Respiratory/Chest: Denies cough or dyspnea Gastrointestinal Gastrointestinal: Reports abdominal pain, diarrhea, nausea and vomiting; Denies melena Genitourinary Genitourinary ED: Denies dysuria Musculoskeletal Musculoskeletal: Denies myalgias Integumentary Denies rash Neurologic Neurologic: Reports weakness; Denies headache(s) Hematologic/Lymphatic Hematologic/Lymphatic: Denies easy bleeding or easy bruising EXAM Physical Exam Const Vital Signs: 11/09/24 01:52 11/09/24 04:00 11/09/24 06:00 Temperature 98.1 F Temperature Source Temporal Pulse Rate 114 H 116 H 106 H Respiratory Rate 24 H 18 18 Blood Pressure 140/98 H 128/80 H 121/85 H Blood Pressure Mean 112 96 97 Pulse Ox 100 100 97 Oxygen Delivery Method Room Air Room Air Positive well nourished and well developed General Appearance ED: well developed; Negative for pallor HEENT Reports dry mucous membranes HEENT Narrative: No tongue or lip swelling no oral lesions no airway edema or compromise No secondary findings in the posterior pharynx to suggest infection Mucous membranes are dry and tacky Mouth ED: Yes dry mucous membranes Mouth: dry mucous membranes Eyes PERRL and EOMs intact bilaterally General Eye ED: Negative for scleral icterus Neck supple Neck Narrative: No nuchal rigidity or meningeal signs Resp normal respiratory effort and clear to auscultation bilaterally Cardio regular rhythm Rate: tachycardic and other Other Details: Tachycardic rate with regular rhythm No murmurs rubs or gallops Radial and carotid pulses are equal and symmetric GI non-distended and no masses GI Narrative: Abdomen is soft and nondistended with hyperactive bowel sounds There is mild diffuse pain on palpation without voluntary guarding or rigidity or pulsatile mass Auscultation: hyperactive bowel sounds Palpation: soft Extremity normal to inspection Neuro oriented x3, CN's II-XII intact bilaterally and no sensory deficits noted Sensorium / Orientation: alert Motor Exam: strength 5/5 throughout Psych mental status grossly normal Skin no rashes or lesions noted and No skin turgor normal Skin Narrative: Skin turgor is increased General Skin Exam: Negative for jaundice or pallor MDM MDM MDM Narrative Medical decision making narrative: Patient arrived to the ER afebrile but was tachycardic and physical exam showed changes concerning for dehydration. With her report of nausea vomiting diarrhea as well as recent antibiotic use there is also concern for potential infectious diarrhea such as Salmonella E. coli C. difficile or Yersinia. Therefore a stool sample was obtained. Patient blood work was ordered to check for acute kidney injury or severe electrolyte abnormality. Patient's white count is elevated at 17.7 which is most likely stress response but secondary to her symptoms and elevated white count a CT of the abdomen pelvis was obtained to check for infectious process, this showed diffuse inflammation consistent with colitis/enteritis which correlates with her physical exam and history. She does not have an abscess or perforation or obstruction. There are no clinically significant electrolyte abnormalities and she does not have acute kidney injury. After receiving 2 L of fluid she did report feeling better and her vitals improved. Therefore this time I do not feel there is need for admission as symptoms have improved with treatment and the workup does not reveal signs of abscess or obstruction or perforation. Plan of care was discussed with the patient who is agreeable to it and therefore should be discharged home at this time History & Record Review Discussion w/independent historian: Patient and Significant other Lab Data Attestation: I reviewed the patient's lab results. Labs: Laboratory Results - last 24 hr 11/09/24 02:42 WBC 17.7 H RBC 4.91 Hgb 14.3 Hct 42.2 MCV 85.9 MCH 29.1 MCHC 33.9 RDW Std Deviation 39.7 RDW Coeff of Teagan 12.7 Plt Count 177 MPV 10.7 Immature Gran % (Auto) 0.400 Neut % (Auto) 91.5 H Lymph % (Auto) 2.8 L Cherry % (Auto) 4.9 Eos % (Auto) 0.2 Baso % (Auto) 0.2 Absolute Neuts (auto) 16.2 H Absolute Lymphs (auto) 0.49 L Nucleated RBC % 0 Sodium 137 Potassium 3.2 L Chloride 109 H Carbon Dioxide 20.0 L Anion Gap 8 BUN 13 Creatinine 0.62 Estim Creat Clear Calc 105.13 Est GFR (MDRD) Af Amer 137 Est GFR (MDRD) Non-Af 113 BUN/Creatinine Ratio 20.9 H Glucose 145 H Calcium 8.9 Magnesium 1.7 Total Bilirubin 0.80 Direct Bilirubin 0.21 AST 14 L ALT 24 Alkaline Phosphatase 33 L Total Protein 7.8 Albumin 3.9 Globulin 3.9 Lipase 27 Radiography Diagnostic Testing: Clinical Impression(s) from Imaging Studies Abdomen/Pelvis CT 11/09/24 03:33 IMPRESSION: 1. Colonic wall thickening mainly the ascending through transverse colon consistent with acute colitis. Fluid distended small bowel suggests enteritis component. 2. Wall thickening distal gastric antrum acute gastritis versus nondistention. 3. Diffuse nodular interstitial infiltrate right lower lobe with bronchiectasis increased compared to the prior. Presumed progression chronic changes but cannot exclude superimposed acute inflammatory component. Electronically Signed: Josselin Gordon MD at 5:50 EST , Discharge Plan Triage Chief Complaint: Nausea/Vomiting/Diarrhea ED Provider: Yasir Aden Dx/Rx/DC Orders Clinical Impression: Nausea vomiting and diarrhea, Dehydration, GERD (gastroesophageal reflux disease), Cystic fibrosis Instructions: ED Dehydration (Adult), ED Gastroenteritis, Viral (Adult) Prescriptions: New ondansetron HCl 4 mg tablet 4 mg PO TID PRN (Reason: nausea and vomiting) Qty: 21 0RF promethazine 25 mg tablet 25 mg PO TID PRN (Reason: nausea and vomiting) Qty: 21 0RF diphenoxylate-atropine [Lomotil] 2.5-0.025 mg tablet 1 tab PO 4X/DAY PRN (Reason: diarrhea) 5 Days Qty: 20 0RF No Action acetaminophen [Tylenol] 325 MG tablet 650 mg PO Q4H PRN (Reason: Pain) albuterol sulfate 2.5 MG/3 ML solution for nebulization 2.5 mg inhalation Q6HWA.RT levothyroxine 50 MCG tablet 25 mcg PO DAILY esomeprazole magnesium [Nexium] 40 MG capsule 40 mg PO BID ondansetron 4 MG tablet 4 mg PO Q8H PRN PRN (Reason: Nausea) guaifenesin [Mucinex] 600 MG tablet extended release 12hr 600 mg PO BID immune globulin (human) (IgG) 1 gram Recon Soln IV Pulmozyme 1 mg/mL Solution 2.5 mg INHALATION BID budesonide 0.25 mg/2 mL Suspension For Nebulization 0.25 mg INHALATION BID azithromycin 500 mg Tablet 500 mg PO DAILY Linzess 145 mcg Capsule 145 mcg PO DAILY amoxicillin-pot clavulanate 875-125 mg tablet 1 tab PO BID Primary Care Provider: Jimmy Farnsworth Referrals: Jimmy Farnsworth MD [Primary Care Provider] - Activity Restrictions/Additional Instructions: Your CT scan showed thickening and inflammation of your intestine consistent with a viral gastroenteritis. This type of infection will last anywhere from 1 to 10 days with the average being 3 days. Take the prescribed medication as directed to control your symptoms and try to keep yourself well-hydrated. Return to the ER should you have any further concerns Print Language: Sinhala Disposition Disposition: Home, Self Care Discharge Date/Time: 11/09/24 08:38
[2024-11-09] MEDS: Ondansetron 4 MG/2 ML Vial IV (06:40)
[2024-11-09 06:43] VITALS: BP 115/74; PULSE 106; RESP 16; TEMP 36.9; O2SAT 97
[2024-11-09 08:00] VITALS: BP 123/63; PULSE 117; RESP 14; O2SAT 100
== END 2024-11-09 08:38 | disposition home or self-care (01) ==
PROVIDERS: Emergency Provider Emergency Medicine; PCP Family Medicine; Visit Provider Emergency Medicine
DX: R11.2 Nausea with vomiting, unspecified (principal); E84.9 Cystic fibrosis, unspecified; E86.0 Dehydration; R19.7 Diarrhea, unspecified; K21.9 Gastro-esophageal reflux disease without esophagitis
CPT/HCPCS: 36591; 74177; 80048; 80076; 83630; 83690; 83735; 85025; 87177; 87209; 87493; 87506; 96361; 96374; 96375; 99285; Q9967; A4216; J2405